=== PATIENT | male | born 1955 | race Hispanic/Latino ===

== ENCOUNTER → 2024-08-13 | Outpatient (CLI) | payer OTHER ==
[~2024-08-13] MED LIST: ALBUMIN HUMAN 25% 200 ML IV ONE
[2024-08-13 08:48] LABS: BASOPHILS # (AUTO) 0.11 K/uL (0.00-0.20); BASOPHILS % (AUTO) 1.7 % (0.0-5.0); EOSINOPHILS # (AUTO) 0.23 K/uL (0.00-0.70); EOSINOPHILS % (AUTO) 3.6 % (0.0-8.0); HEMATOCRIT 28.6 % (42-54); IMMATURE GRANULOCYTE ABSOLUTE 0.05 K/uL (0-1); LYMPHOCYTES % (AUTO) 16.4 % (21.0-51.0); MEAN CORPUSCULAR HEMOGLOBIN 26.6 pg (27.0-33.0); MEAN CORPUSCULAR HGB CONC 30.8 g/dL (32.0-36.0); MEAN CORPUSCULAR VOLUME 86.4 fL (79-99); MONOCYTES # (AUTO) 1.1 K/uL (0.1-1.0); MONOCYTES % (AUTO) 17.2 % (3.0-13.0); NEUTROPHILS # (AUTO) 3.8 K/uL (1.8-7.7); NEUTROPHILS % (AUTO) 60.3 % (40.0-77.0); PLATELET COUNT (AUTO) 169 K/uL (130-400); RED BLOOD CELL COUNT(AUTO) 3.31 MIL/uL (4.50-6.20); RED CELL DISTRIBUTION WIDTH 21.4 % (11.0-15.5); WHITE BLOOD COUNT (AUTO) 6.3 K/uL (4.8-10.8)
[2024-08-13 09:02] LABS: INR 1.28 (0.85-1.15)
[2024-08-13 09:04] LABS: PARTIAL THROMBOPLASTIN TIME 29.6 SEC (26.3-35.5)
[2024-08-13 09:11] LABS: ALBUMIN 2.9 g/dL (3.5-5.0); BILIRUBIN,TOTAL 2.1 mg/dL (0.2-1.0); CREATININE 0.9 mg/dL (0.5-1.3); POTASSIUM 4.5 mmol/L (3.5-5.1)
--- NOTE | 2024-08-13 10:00 | NUR ---
U/S GD PARACENTESIS PROCEDURE PERFORMED BY DR Nasima RENEE. PUNCTURE SITE RLQ AND PATIENT TOLERATED PROCEDURE WELL. TOTAL REMOVED 6 LITERS OF CLUDY YELLOW FLUID. ALBUMIN 25% 50 GRAMS IV GIVEN DURING PROCEDURE. SPECIMEN SENT TO LAB. END OF PROCEDURE AT 0930 CATHETER REMOVED AND DRESSING APPLIED. NO BLEEDING NOTED. DISCHARGE INSTRUCTIONS GIVEN TO PATIENT AND VERBALIZED UNDERSTANDING. DISCHARGED VIA W/C AT 1000. AAO X3 WITH NO C/O PAIN.
--- NOTE | 2024-08-13 11:01 | HMCIMG ---
US ABDOMINAL PARACENTESIS IR REASON: CIRRHOSIS OF LIVER TECHNIQUE: Paracentesis was performed with ultrasound guidance. The puncture site was selected in the Right lower quadrant and overlying skin prepped and draped in a sterile fashion. 1% Xylocaine infiltration was performed. Catheter was placed in the fluid using trocar technique. 6 L were removed. Fluid sample was submitted for laboratory evaluation. The patient showed no evidence of complication during the procedure. IMPRESSION: 1. Ultrasound-guided paracentesis.
[2024-08-13 15:04] LABS: APPEARANCE BODY FLUID CLEAR (CLEAR); COLOR,BODY FLUID LT YELLOW (LT YELLOW); SPECIMENTYPE,BODY FLUID ASCITES
[2024-08-13 15:16] LABS: BODY FLUID RBC 623 /cu. mm.; BODY FLUID WBC 126 /cu. mm.
[2024-08-13 15:59] LABS: BF EOSINOPHIL 1 %; BF LYMPHOCYTE 34 %; BF MACROPHAGE 61; BF MESOTHELIAL 3 %; BF TOTAL CELLS COUNTED 100
[2024-08-13 21:43] LABS: TOTAL VOLUME,BODY FLUID 6000 mL
== END | disposition home or self-care (01) ==
LOC: RAH 07:45
PROVIDERS: ATTEND Internal Medicine
DX: K74.60 Unspecified cirrhosis of liver (principal); K76.82 Hepatic encephalopathy; I85.10 Secondary esophageal varices without bleeding; K59.00 Constipation, unspecified; R18.8 Other ascites; C20 Malignant neoplasm of rectum; R12 Heartburn; I10 Essential (primary) hypertension; E11.9 Type 2 diabetes mellitus without complications; F32.A Depression, unspecified; E66.9 Obesity, unspecified; E78.5 Hyperlipidemia, unspecified; M19.90 Unspecified osteoarthritis, unspecified site; Z85.048 Personal history of other malignant neoplasm of rectum, rectosigmoid junction, and anus; Z68.26 Body mass index [BMI] 26.0-26.9, adult; Z79.84 Long term (current) use of oral hypoglycemic drugs; Z79.82 Long term (current) use of aspirin; Z79.899 Other long term (current) drug therapy; Z90.49 Acquired absence of other specified parts of digestive tract
CPT/HCPCS: 49083; 80053; 85025; 89051; 85610; 85730; 36415; P9046; C1729; 96365

== ENCOUNTER → 2024-08-20 | Outpatient (CLI) | payer OTHER ==
--- NOTE | 2024-08-20 09:20 | NUR ---
U/S GD PARACENTESIS TOLERATED PROCEDURE. PERFORMED BY DR Luis Eduardo SWAIN. PUNCTURE SITE TO LLQ. 6.0 LITERS OF YELLOW CLOUDY FLUID REMOVED AN SENT TO LAB. ALBUMIN 25% 50 GRAMS GIVEN. END OF PROCEDURE AT 0900. NO BLEEDING NOTED. DRESSING APPLIED. DISCHARGE INSTRUCTIONS GIVEN. DISCARD VIA WHEELCHAIR. DENIES PAIN. A&O.
--- NOTE | 2024-08-20 11:08 | HMCIMG ---
US ABDOMINAL PARACENTESIS IR HISTORY: Ascites COMPARISON: None TECHNIQUE: Informed consent was obtained. Risks and benefits were explained to the patient. A timeout was performed. Patient was prepped and draped in a sterile fashion. Local anesthetics was given as required. Under ultrasound guidance, ascites fluid was localized. Paracentesis was performed. FINDINGS: 6 L of yellowish fluid was aspirated. Less than 2 cc blood loss is noted. Patient tolerated procedure without complication. Patient left the department in good condition. IMPRESSION: 1. Uncomplicated ultrasound guidance paracentesis.
[2024-08-20 11:52] LABS: BODY FLUID RBC 27 /cu. mm.; BODY FLUID WBC 144 /cu. mm.
[2024-08-20 13:13] LABS: APPEARANCE BODY FLUID SLIGHTLY CLOUDY (CLEAR); SPECIMENTYPE,BODY FLUID ASCITES
[2024-08-20 13:14] LABS: COLOR,BODY FLUID YELLOW (LT YELLOW); TOTAL VOLUME,BODY FLUID 6000 mL
[2024-08-20 13:51] LABS: BF LYMPHOCYTE 31 %; BF MACROPHAGE 3; BF MESOTHELIAL 2 %; BF MONOCYTE 56 %; BF TOTAL CELLS COUNTED 100
== END | disposition home or self-care (01) ==
LOC: RAH 07:38
PROVIDERS: ATTEND Internal Medicine
DX: R18.8 Other ascites (principal); K74.60 Unspecified cirrhosis of liver; I85.10 Secondary esophageal varices without bleeding; K76.82 Hepatic encephalopathy; C20 Malignant neoplasm of rectum; K59.00 Constipation, unspecified; I10 Essential (primary) hypertension; E78.5 Hyperlipidemia, unspecified; E11.9 Type 2 diabetes mellitus without complications; M19.90 Unspecified osteoarthritis, unspecified site; F32.A Depression, unspecified; Z90.49 Acquired absence of other specified parts of digestive tract; Z79.4 Long term (current) use of insulin; Z79.82 Long term (current) use of aspirin; Z79.899 Other long term (current) drug therapy
CPT/HCPCS: 49083; 89051; P9046; C1729; 96365

== ENCOUNTER → 2024-08-26 | Outpatient (CLI) | payer OTHER ==
--- NOTE | 2024-08-26 09:30 | NUR ---
U/S GD PARACENTESIS PERFORMED BY DR Nasima RENEE. TOLERATED PROCEDURE. 3.8 LITERS OF YELLOW CLOUDY FLUID REMOVED FROM LLQ. END OF PROCEDURE AT 0910. DRESSING DRY AND INTACT. NO BLEEDING NOTED. SPECIMEN SENT TO LAB. DISCHARGE INSTRUCTION GIVEN TO PT AND SPOUSE AT BEDSIDE. DISCHARGE VIA WHEELCHAIR WITH SPOUSE. DENIES PAIN. A&O.
--- NOTE | 2024-08-26 12:26 | HMCIMG ---
US ABDOMINAL PARACENTESIS IR REASON: ASCITES TECHNIQUE: Paracentesis was performed with ultrasound guidance. The puncture site was selected in the Left lower quadrant and overlying skin prepped and draped in a sterile fashion. 1% Xylocaine infiltration was performed. Catheter was placed in the fluid using trocar technique. 3.8 L were removed. Fluid sample was submitted for laboratory evaluation. The patient showed no evidence of complication during the procedure. IMPRESSION: 1. Ultrasound-guided paracentesis.
[2024-08-26 13:17] LABS: BODY FLUID RBC 27 /cu. mm.; BODY FLUID WBC 198 /cu. mm.
[2024-08-26 13:19] LABS: APPEARANCE BODY FLUID CLEAR (CLEAR); COLOR,BODY FLUID YELLOW (LT YELLOW); SPECIMENTYPE,BODY FLUID ASCITES; TOTAL VOLUME,BODY FLUID 3800 mL
[2024-08-26 15:38] LABS: BF LYMPHOCYTE 16 %; BF MACROPHAGE 50; BF MESOTHELIAL 2 %; BF MONOCYTE 7 %; BF OTHER CELLS 5; BF TOTAL CELLS COUNTED 100
== END | disposition home or self-care (01) ==
LOC: RAH 07:42
PROVIDERS: ATTEND Internal Medicine
DX: R18.8 Other ascites (principal); K74.60 Unspecified cirrhosis of liver; I10 Essential (primary) hypertension; E11.9 Type 2 diabetes mellitus without complications; E78.5 Hyperlipidemia, unspecified; M19.90 Unspecified osteoarthritis, unspecified site; F32.A Depression, unspecified; I85.10 Secondary esophageal varices without bleeding; C20 Malignant neoplasm of rectum; Z90.49 Acquired absence of other specified parts of digestive tract; Z79.82 Long term (current) use of aspirin; Z79.899 Other long term (current) drug therapy
CPT/HCPCS: 49083; 89051; C1729

== ENCOUNTER → 2024-09-03 | Outpatient (CLI) | payer OTHER ==
[~2024-09-03] MED LIST changes: -ALBUMIN HUMAN 25% 200 ML IV ONE; +ALBUMIN HUMAN 25% 200 ML IV SCH
--- NOTE | 2024-09-03 09:30 | NUR ---
U/S GD PARACENTESIS TOLERATED PROCEDURE. PERFORMED BY DR Dominic JONES. 1.5 LITERS OF YELLOW CLOUDY FLUID REMOVED FROM RLQ. SPECIMEN SENT TO LAB. PUNCTURE SITE TO RLQ. END OF PROCEDURE AT 0910. DRESSING DRY AND INTACT. NO BLEEDING NOTED. DISCHARGE INSTRUCTIONS GIVEN TO PT AND SPOUSE. VERBALIZED UNDERSTANDING. DISCHARGE VIA WHEELCHAIR. DENIES PAIN. A&O.
--- NOTE | 2024-09-03 10:14 | HMCIMG ---
ULTRASOUND GUIDED PARACENTESIS: INDICATION: Ascites TECHNIQUE: Informed consent was obtained. Timeout performed. All elements of maximal sterile barrier technique, including hand hygiene and cutaneous antisepsis were used. Patient was placed supine. Right lower quadrant was prepped and draped in sterile fashion. Local anesthesia was applied. Then, under ultrasound guidance, a 5F centesis needle was advanced through the abdominal wall and into a pocket of fluid in the peritoneum. It yielded 1.5 L of fluid. The catheter was removed and sterile dressing applied. Blood pressure monitoring was performed during the procedure. Complications: None Blood loss: <5 mL. IMPRESSION: Successful ultrasound guided paracentesis.
== END | disposition home or self-care (01) ==
LOC: RAH 07:45
PROVIDERS: ATTEND Internal Medicine
DX: R18.8 Other ascites (principal); K74.60 Unspecified cirrhosis of liver; K76.82 Hepatic encephalopathy; K59.00 Constipation, unspecified; R13.10 Dysphagia, unspecified; I85.10 Secondary esophageal varices without bleeding; R12 Heartburn; E66.9 Obesity, unspecified; I10 Essential (primary) hypertension; E78.5 Hyperlipidemia, unspecified; E11.9 Type 2 diabetes mellitus without complications; M19.90 Unspecified osteoarthritis, unspecified site; F32.A Depression, unspecified; F17.200 Nicotine dependence, unspecified, uncomplicated; Z85.048 Personal history of other malignant neoplasm of rectum, rectosigmoid junction, and anus; Z90.89 Acquired absence of other organs; Z68.26 Body mass index [BMI] 26.0-26.9, adult; Z79.899 Other long term (current) drug therapy; Z79.4 Long term (current) use of insulin; Z79.82 Long term (current) use of aspirin
CPT/HCPCS: 49083; C1729